=== PATIENT | female | born 2000 | race Caucasian/White ===

== ENCOUNTER 2020-01-29 19:18 | Emergency (ER) | payer MEDICAID ==
[~2020-01-29] VITALS: Ht 152.4 cm; Wt 103.0 kg
[2020-01-29 19:25] VITALS: Ht 152.4 cm; Wt 103.0 kg
[2020-01-29 20:27] LABS: UA SPECIFIC GRAVITY >=1.030 (1.005-1.035); microscopic required? YES; urine erythrocyte 3+ (NEGATIVE)
[2020-01-29 20:31] LABS: BASOPHIL % 0.7 % (0-2); PLATELET COUNT 181 x10^3mcL (130-400); RED CELL DISTRIBUTION WIDTH 12.4 % (11.5-14.5)
[2020-01-29 23:34] VITALS: BP 111/63
== END 2020-01-29 23:34 | disposition home or self-care (01) ==
LOC: ED 19:18
PROVIDERS: Emergency Medicine
DX: O03.4 Incomplete spontaneous abortion without complication (principal); J45.909 Unspecified asthma, uncomplicated; Z98.890 Other specified postprocedural states; Z3A.01 Less than 8 weeks gestation of pregnancy
CPT/HCPCS: J1460; Q0092

== ENCOUNTER 2020-02-06 17:53 | Emergency (ER) | payer MEDICAID ==
[~2020-02-06] VITALS: Ht 152.4 cm; Wt 101.6 kg
[2020-02-06 18:15] VITALS: Ht 152.4 cm; Wt 101.6 kg
[2020-02-06 19:01] LABS: BASOPHIL % 0.3 % (0-2); PLATELET COUNT 198 x10^3mcL (130-400); RED CELL DISTRIBUTION WIDTH 13.4 % (11.5-14.5)
[2020-02-06 22:24] VITALS: BP 118/72
== END 2020-02-06 21:55 | disposition home or self-care (01) ==
LOC: ED 17:53
DX: N93.9 Abnormal uterine and vaginal bleeding, unspecified (principal); N39.0 Urinary tract infection, site not specified; Z98.890 Other specified postprocedural states